=== PATIENT | male | born 1955 | race Hispanic/Latino ===

== ENCOUNTER 2020-05-04 14:33 | Inpatient (IN) | payer BC, MEDICARE ==
[2020-05-04] MEDS ORDERED: Morphine 4 MG/ML VIAL ONE (15:03)
[2020-05-04] MEDS ORDERED: Ondansetron PF 4 MG/2 ML Vial ONE (15:03)
[2020-05-04 15:11] LABS: #Basophils 0.1 thou/uL (0.0-0.2); #Eosinphils 0.2 thou/uL (0.0-0.7); #Lymphocytes 1.7 thou/uL (1.20-3.40); #Neutrophils 9.7 thou/uL (1.40-6.50); %Basophils 0.6 % (0.0-1.0); %Eosinophils 1.4 % (0.0-10.0); %Lymphocytes 13.6 % (21.0-51.0); %Neutrophils 76.3 % (42.0-75.0); Hemoglobin 16.2 g/dL (14.0-18.0); Mean Corpuscular HGB CONC 33.7 g/dL (32.0-36.0); Mean Corpuscular Hemoglobin 30.8 pg (27.0-31.0); Mean Corpuscular Volume 91.4 fL (78.0-98.0); Mean Platelet Volume 7.4 fL (7.4-10.4); Platelet Count 208 thou/uL (130-400); RBC Distribution Width 11.6 % (11.5-14.5); Red Blood Cell (RBC) Count 5.28 mill/uL (4.70-6.10); White Blood Cell (WBC) Count 12.7 thou/uL (4.8-10.8)
--- NOTE | 2020-05-04 15:37 | RAD ---
EXAM: 2 views of the right hip HISTORY: Right hip pain after fall on Tuesday COMPARISON: None FINDINGS: 2 views of the right hip shows a minimally displaced intertrochanteric femur fracture. Mild right hip degenerative changes are seen. Mild soft tissue swelling is present. IMPRESSION: Intertrochanteric right femur fracture
[2020-05-04 15:39] LABS: ALT (SGPT) 16 U/L (8-55); AST (SGOT) 16 U/L (5-34); Albumin 3.8 g/dL (3.4-4.8); Alkaline Phosphatase 60 U/L (40-110); Anion Gap 15 mmol/L (10-20); BUN (Urea Nitrogen) 20 mg/dL (8.4-25.7); Bilirubin, Total 0.7 mg/dL (0.2-1.2); CK (CPK) 48 U/L (30-200); Calc. Creatinine Clearance 0 mL/min (70-130); Carbon Dioxide 26 mmol/L (23-31); Chloride 102 mmol/L (98-107); Estimated GFR-MDRD 68; Globulin 3.2 g/dL (2.4-3.5); Glucose 99 mg/dL (80-115); Potassium 4.5 mmol/L (3.5-5.1); Sodium 138 mmol/L (136-145)
--- NOTE | 2020-05-04 15:40 | RAD ---
EXAM: Single view of the chest HISTORY: Fall with chest pain COMPARISON: None FINDINGS: Single view of the chest shows a normal sized cardiomediastinal silhouette. There is no laurent dence of consolidation, mass, or pleural effusion. Degenerative changes are seen in the spine. IMPRESSION: No evidence of acute cardiopulmonary disease
--- NOTE | 2020-05-04 15:43 | RAD ---
Exam: Single view of the pelvis HISTORY: Pelvic and hip pain after fall COMPARISON: None FINDINGS: A single view the pelvis shows an intertrochanteric fracture of the right femur. Mild degen erative changes are seen in both hips. IMPRESSION: Intertrochanteric right femur fracture
[2020-05-04 16:22] LABS: Bilirubin Negative (Negative); Blood, Urine Negative (Negative); Clarity Clear (Clear); Glucose, Urine (Dipstick) Normal (Negative); Ketone, Urine Negative (Negative); Leukocyte Negative Leu/uL (Negative); Nitrite Negative (Negative); Protein, Urine (Dipstick) 10 mg/dL (Neg-Trace); Specific Gravity, Urine 1.029 (1.002-1.036); Urobilinogen Normal mg/dL (Less than 2); pH, Urine 6.5 (5.0-9.0)
[2020-05-04] MEDS ORDERED: Ondansetron ODT 4 MG TAB PO PRN (18:53)
[2020-05-04] MEDS ORDERED: Ondansetron PF 4 MG/2 ML Vial IVP PRN (18:53)
[2020-05-04] MEDS ORDERED: Dextrose 5% in Water 1,000 ML IV PRN (18:53)
[2020-05-04] MEDS ORDERED: traMADol HCl 50 MG TAB PO PRN (18:53)
[2020-05-04] MEDS ORDERED: Dextrose 50% Abboject 50 ML SYRINGE SLOW IVP PRN (18:53)
[2020-05-04] MEDS ORDERED: Morphine 2 MG/ML VIAL SLOW IVP PRN (18:53)
[2020-05-04] MEDS ORDERED: Cyclobenzaprine 10 MG TAB PO PRN (18:53)
--- NOTE | 2020-05-04 19:23 | HP ---
REQUESTING PHYSICIAN: Dr. Cerrato. ATTENDING SURGEON: Dr. Dahl. CONSULTATIONS: Orthopedics, Dr. Bloom. HISTORY OF PRESENT ILLNESS: The patient is a 64-year-old man, who on Tuesday went to sit on a stool in his kitchen and missed the stool, landed on his right hip. The patient had enough pain that he was unable to ambulate, but was able to get to the bedroom and get in to bed. He spent the days there and finally today his convinced him to come to the emergency department, where he underwent evaluation and examination, was noted to have a right intertrochanteric femur fracture, which time we were asked to evaluate the patient for admission and obtain Orthopedic consultation. ALLERGIES: NONE. CURRENT MEDICATIONS: None. PAST MEDICAL HISTORY: Hypertension. The patient reports he controlled with his weight and diet. PAST SURGICAL HISTORY: Tonsillectomy. SOCIAL HISTORY: The patient denies drug, tobacco, or alcohol use. 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 He lives at home with his . REVIEW OF SYSTEMS: 10-point review of systems is negative as otherwise stated. PHYSICAL EXAMINATION: VITAL SIGNS: Blood pressure 145/74, heart rate 80, respirations 16, oxygen saturation is 96% on room air, and temperature is 98.7. GENERAL: The patient is resting comfortably in bed. He is awake, alert, conversant, appropriate. [place] Coma Scale is 15. HEENT: Unremarkable. LUNGS: Clear to auscultation with good inspiratory and expiratory effort. HEART: Regular rate and rhythm. ABDOMEN: Soft, flat, nontender with active bowel sounds. EXTREMITIES: Neurovascularly intact x4. PELVIS: Stable with tenderness to palpation of the right hip consistent with his fracture. BACK: Atraumatic and nontender. LABORATORY FINDINGS: White blood cell count 12.7, hemoglobin 16.2, hematocrit 48.2, platelets 208. Sodium 138, potassium 4.5, chloride 102, CO2 of 26, BUN 20, creatinine 1.08, glucose 99. LFTs are unremarkable. Troponin is 0.018. CK is 48. Urinalysis is unremarkable. RADIOGRAPHS: AP chest x-ray shows no acute cardiopulmonary process. AP pelvis shows a right intertrochanteric femur fracture. Views of the right hip again demonstrate the right nondisplaced intertrochanteric femur fracture. PLAN: Plan will be to admit the patient to the surgical floor. We will make him n.p.o. after midnight. He will have pain control, pulmonary toilet, gastritis and mechanical VTE prophylaxis. Postoperatively, we will begin physical and occupational therapy, chemical VTE prophylaxis, and placement. The evaluation, examination, laboratory, and radiographic findings were discussed with Dr. Dahl prior to this dictation. Job ID: [id number]
[2020-05-04] MEDS: Famotidine 20 MG TAB PO SCH (21:50)
[2020-05-04] MEDS: Ibuprofen 600 MG TAB PO SCH (21:50)
[2020-05-04 22:48] VITALS: BMI 31.8
[2020-05-04 23:11] LABS: SARS-CoV-2 MS2 Positive; SARS-CoV-2 N Gene Negative; SARS-CoV-2 S Gene Negative; SARS-CoV-2 by NAA Not Detected (NotDetected); SARS-CoV-2 orf1ab Negative
[2020-05-04] MEDS: Acetaminophen 500 MG TAB PO SCH (23:23)
[2020-05-04] MEDS: Sodium Chloride 0.9% 1,000 ML IV SCH (23:24)
[2020-05-05] MEDS: Ibuprofen 600 MG TAB PO SCH ×3 (05:16→21:02)
[2020-05-05] MEDS: Acetaminophen 500 MG TAB PO SCH ×4 (05:16→23:25)
[2020-05-05 05:51] LABS: #Basophils 0.1 thou/uL (0.0-0.2); #Eosinphils 0.5 thou/uL (0.0-0.7); #Lymphocytes 2.3 thou/uL (1.20-3.40); #Monocytes 0.9 thou/uL (0.11-0.59); #Neutrophils 5.5 thou/uL (1.40-6.50); %Basophils 0.6 % (0.0-1.0); %Eosinophils 5.5 % (0.0-10.0); %Lymphocytes 24.9 % (21.0-51.0); Hemoglobin 15.3 g/dL (14.0-18.0); Mean Corpuscular HGB CONC 33.5 g/dL (32.0-36.0); Mean Corpuscular Hemoglobin 30.7 pg (27.0-31.0); Mean Corpuscular Volume 91.6 fL (78.0-98.0); Mean Platelet Volume 7.2 fL (7.4-10.4); Platelet Count 186 thou/uL (130-400); RBC Distribution Width 11.8 % (11.5-14.5); Red Blood Cell (RBC) Count 4.98 mill/uL (4.70-6.10); White Blood Cell (WBC) Count 9.3 thou/uL (4.8-10.8)
[2020-05-05 06:09] LABS: Anion Gap 12 mmol/L (10-20); BUN (Urea Nitrogen) 19 mg/dL (8.4-25.7); Calc. Creatinine Clearance 107 mL/min (70-130); Calcium 8.6 mg/dL (7.8-10.44); Carbon Dioxide 28 mmol/L (23-31); Chloride 104 mmol/L (98-107); Estimated GFR-MDRD 73; Glucose 92 mg/dL (80-115); Magnesium 2.3 mg/dL (1.6-2.6); Phosphorus 3.7 mg/dL (2.3-4.7); Potassium 4.9 mmol/L (3.5-5.1); Sodium 139 mmol/L (136-145)
[2020-05-05] MEDS ORDERED: CEFAZOLIN 2 GM in Premix Bag 1 BAG IVPB SCH (07:30)
--- NOTE | 2020-05-05 08:51 | CON ---
DATE OF CONSULTATION: 05/05/2020 REQUESTING PHYSICIAN: Dr. Rio Dahl. BRIEF HISTORY OF PRESENT ILLNESS: Mr. Vee is a 64-year-old gentleman who is examined in his hospital room at [facility] in [place], [place]. He reports that 6 days prior to admission, he was in his kitchen when he tried to sit on a stool, but missed the stool, landing awkwardly on the right hip. He reports immediate pain. He was able to get to his bedroom and since injury, has essentially been lying in his bed with just brief periods of time out of bed with continued right hip pain. He finally presented to the emergency room, where x-rays were obtained that demonstrated a minimally displaced right intertrochanteric femur fracture. The patient was admitted to the Trauma Service and Orthopedic consultation requested. PAST MEDICAL HISTORY: Remarkable for hypertension. PAST SURGICAL HISTORY: Tonsillectomy. MEDICATIONS: None. ALLERGIES: NONE KNOWN. SOCIAL HISTORY: Denies tobacco, alcohol, or drug use. 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 REVIEW OF SYSTEMS: No recent fevers, chills, or sweats. Denies chest pain, shortness of breath, or cough. Denies numbness or tingling in his lower extremities. FAMILY HISTORY: Noncontributory. PHYSICAL EXAMINATION: VITAL SIGNS: Temperature 97.4, heart rate of 62, respiratory rate of 16, and blood pressure 105/68. HEENT: Atraumatic and normocephalic. HEART: Shows a regular rate and rhythm without murmur. LUNGS: Clear to auscultation bilaterally with good breath sounds. Chest wall is nontender. PELVIS: Stable. EXTREMITIES: Remarkable for right lower extremity with groin pain with logrolling of the thigh. His distal neurovascular exam is intact. He denies numbness or tingling in the foot. He is able to wiggle his toes and ankle without difficulty. LABORATORY DATA: He was found to have a white count of 9.3, hematocrit of 45.6, and 186,000 platelets. X-RAYS: AP pelvis as well as right hip x-rays are remarkable for a minimally displaced right intertrochanteric femur fracture. ASSESSMENT: A 64-year-old gentleman, now one week status post fall at home sustaining a right intertrochanteric femur fracture. PLAN: At this time, the patient has been admitted to the Trauma Service. He is currently n.p.o. We will proceed with surgical stabilization of this intertrochanteric femur fracture with a DHS device. Today, I discussed with the patient risks and benefits of the procedure. Risks include, but are not limited to bleeding, infection, nerve injury, DVT, PE, loss of limb or life. The patient appears to understand and does wish to proceed. Written consent will be obtained prior to surgery. Job ID: [id number]
[2020-05-05] MEDS: Famotidine 20 MG TAB PO SCH ×2 (09:08→20:40)
[2020-05-05] MEDS: Sodium Chloride 0.9% 1,000 ML IV SCH (12:06)
[2020-05-05] MEDS ORDERED: Rocuronium Bromide 10 MG/ML (10ML VIAL) ONE (14:11)
[2020-05-05] MEDS ORDERED: PROPOFOL 200 MG/20 ML VIAL ONE (14:11)
[2020-05-05] MEDS ORDERED: Dexamethasone 20 MG/5 ML VIAL ONE (14:11)
[2020-05-05] MEDS ORDERED: Ketorolac Tromethamine 30 MG/ML VIAL ONE (14:11)
[2020-05-05] MEDS ORDERED: Glycopyrrolate 0.2 MG/ML 5 ML SYRINGE ONE (14:11)
[2020-05-05] MEDS ORDERED: Ondansetron PF 4 MG/2 ML Vial ONE (14:11)
[2020-05-05] MEDS ORDERED: Lidocaine 1% PF 5 ML VIAL ONE (14:11)
[2020-05-05] MEDS ORDERED: Fentanyl 100 MCG/2 ML VIAL ONE ×3 (14:50→17:14)
[2020-05-05] MEDS ORDERED: Promethazine HCl 25 MG/ML VIAL SLOW IVP PRN (16:43)
[2020-05-05] MEDS ORDERED: Ondansetron HCl/PF 4 MG/2 ML Vial IVP PRN (16:43)
[2020-05-05] MEDS ORDERED: HYDROmorphone 2 MG/ML VIAL SLOW IVP PRN (16:43)
[2020-05-05] MEDS ORDERED: Meperidine HCl/PF 25 MG/ML VIAL SLOW IVP PRN (16:43)
--- NOTE | 2020-05-05 18:57 | RAD ---
EXAM: XR Hip Rt 2-3 View DATE: 05/05/2020 3:15 PM INDICATION: ORIF of right femur COMPARISON: Right hip radiograph dated May 04, 2020 FINDING: There has been interval reduction and placement of a hip screw and sideplate. Fracture alig nment is near anatomic. The instrumentation projects in the expected position. Total fluoroscopic time was 64.1 seconds. IMPRESSION:ORIF of right intertrochanteric hip fracture
--- NOTE | 2020-05-05 19:44 | PRG ---
DATE OF SERVICE: 05/05/2020 SUBJECTIVE: The patient is hospital day 2 status post delayed presentation of a right intertrochanteric femur fracture. He has been n.p.o. since midnight. He is currently awaiting surgery at the time of our visit. The patient reports no issues overnight. He is tolerating a diet. PHYSICAL EXAMINATION: VITAL SIGNS: Temperature is 97.7, heart rate 69, respirations 18, oxygen saturation 97% on room air, and blood pressure 158/81. GENERAL: The patient is resting comfortably in bed. He is awake, alert, conversant, appropriate. [place] Coma Scale is 15. HEENT: Unremarkable. LUNGS: Clear to auscultation with good inspiratory and expiratory effort. HEART: Regular rate and rhythm. ABDOMEN: Soft, flat, and nontender with active bowel sounds. EXTREMITIES: Neurovascularly intact x4. LABORATORY FINDINGS: White blood cell count 9.3, hemoglobin 15.3, hematocrit 45.6, platelets 186. Sodium 139, potassium 4.9, chloride 104, CO2 of 28, BUN 19, creatinine 1.02, glucose 92, magnesium 2.3, and phosphorus 3.7. RADIOGRAPHIC DATA: There are no radiographs to review this morning. ASSESSMENT AND PLAN: 1. Status post ground level fall with delayed presentation. 2. Right intertrochanteric femur fracture. Plan will be to await surgical procedure. Postoperatively, we will begin physical and occupational therapy, chemical VTE prophylaxis, and discuss placement at that time. The patient was evaluated this morning with Dr. Pisano during rounds. Job ID: [id number]
[2020-05-05] MEDS: CEFAZOLIN 2 GM in Premix Bag 1 BAG IVPB SCH (20:40)
[2020-05-06] MEDS: CEFAZOLIN 2 GM in Premix Bag 1 BAG IVPB SCH ×2 (05:12→11:50)
[2020-05-06] MEDS: Ibuprofen 600 MG TAB PO SCH ×3 (05:12→21:00)
[2020-05-06] MEDS: Acetaminophen 500 MG TAB PO SCH ×4 (05:13→23:27)
[2020-05-06 05:55] LABS: #Lymphocytes 1.1 thou/uL (1.20-3.40); #Monocytes 0.9 thou/uL (0.11-0.59); #Neutrophils 11.9 thou/uL (1.40-6.50); %Basophils 0.2 % (0.0-1.0); %Eosinophils 0.2 % (0.0-10.0); %Lymphocytes 7.9 % (21.0-51.0); %Monocytes 6.3 % (0.0-10.0); %Neutrophils 85.5 % (42.0-75.0); Hemoglobin 14.9 g/dL (14.0-18.0); Mean Corpuscular Hemoglobin 30.2 pg (27.0-31.0); Mean Corpuscular Volume 91.4 fL (78.0-98.0); Mean Platelet Volume 7.3 fL (7.4-10.4); Platelet Count 225 thou/uL (130-400); RBC Distribution Width 11.5 % (11.5-14.5); Red Blood Cell (RBC) Count 4.95 mill/uL (4.70-6.10); White Blood Cell (WBC) Count 13.9 thou/uL (4.8-10.8)
[2020-05-06] MEDS ORDERED: Aspirin 81 mg Enteric Coated Tablet PO SCH (09:00)
[2020-05-06] MEDS: Famotidine 20 MG TAB PO SCH ×2 (09:42→20:56)
[2020-05-06] MEDS: Aspirin 81 mg Enteric Coated Tablet PO SCH ×2 (09:42→20:55)
[2020-05-06] MEDS: traMADol HCl 50 MG TAB PO PRN ×2 (09:47→16:17)
[2020-05-06] MEDS: traMADol HCl 50 MG TAB PO SCH ×2 (18:10→23:27)
[2020-05-06] MEDS: Senokot S 8.6-50 MG TAB PO SCH (20:55)
--- NOTE | 2020-05-07 00:58 | OP ---
DATE OF PROCEDURE: 05/05/2020 PREOPERATIVE DIAGNOSIS: Right intertrochanteric femur fracture. POSTOPERATIVE DIAGNOSIS: Right intertrochanteric femur fracture. PROCEDURE PERFORMED: DHS right intertrochanteric femur fracture. ANESTHESIA: General. AERONAUTICAL PRODUCTS SALES ENGINEER: Edwin. IMPLANT: Synthes DHS system was used with 135-degree 3-hole sideplate and a 100 mm hip screw. COMPLICATIONS: None. ESTIMATED BLOOD LOSS: 200 mL. DRAINS: None. SPECIMEN: None. OUTCOME: Satisfactory. INDICATIONS FOR PROCEDURE: The patient is a pleasant 64-year-old gentleman, who nearly a week prior to this admission, fell at home sustaining trauma to the right hip. He was able to place himself at bedrest at home; however, as the hip did not improve, he eventually presented to the emergency room for evaluation. X-ray evaluation demonstrated an intertrochanteric femur fracture. The patient now admitted to the Trauma Service, an Orthopedic consultation requested. Today, I discussed with the patient risks and benefits of the procedure. He appears to understand and does wish to proceed. DESCRIPTION OF PROCEDURE: The patient was brought to the operating room and a time-out performed followed by induction of general anesthesia. Next, patient was positioned supine on the fracture table with the injured extremity held in longitudinal traction and the well leg held in extension at the hip to allow for AP and lateral C-arm imaging of the right hip. Next, a sterile prep and drape was performed of the right lateral thigh. Next, an incision was made distal to the greater trochanter following the line of the femur. After skin was sharply incised, dissection was carried down to the underlying fascia randell. This structure was incised in line with the skin incision and reflected anteriorly and posteriorly revealing the fascia of the vastus lateralis. This fascia was also incised in line with the skin incision and then the muscle belly was swept off the posterior fascial leaflet and reflected off the lateral cortex of the femur. At this point, a 135-degree jig was used to pass a guidewire from the lateral cortex of the femur up the femoral neck into the femoral head. Once appropriately positioned, a measurement was taken off this pin and 100 mm hip screw was found to be of appropriate length. Next, the step drill was passed over this guidewire. Further reaming and preparing the femoral neck and femoral head to accept the hip screw. A 135-degree sideplate with 100 mm hip screw was then introduced in the wound. The hip screw was passed over the guidewire, screwing it up the femoral neck into the femoral head to an appropriate position. This was checked with both AP and lateral C-arm images. The sideplate was then affixed to the lateral cortex of the femur using three 4.5 mm cortical screws. With completion of this, final AP and lateral C-arm images were obtained of the right proximal femur. The wound was then irrigated with bulb syringe and closed in layers with 0 Vicryl for the fascia randell, followed by 2-0 Vicryl subcutaneously and regino for the skin. Xeroform gauze tape dressing was applied to the right lateral thigh and then patient was transferred to recovery room in stable condition. There were no complications. It should be noted that my assistant tennis professional was used for retraction of the vastus lateralis to allow for visualization of the lateral cortex of the femur as well as manipulation of the leg for reduction prior to hardware placement. There were no complications. He tolerated the procedure well. Job ID: [id number]
--- NOTE | 2020-05-07 05:03 | PRG ---
DATE OF SERVICE: 05/06/2020 SUBJECTIVE: The patient is now hospital day #3 status post delayed presentation of a right intertrochanteric femur fracture. Yesterday, he underwent open reduction and internal fixation of this right hip fracture. This morning, he is tolerating a diet well. He is sitting up in the chair to get out of the bed. He reports that he is having some difficulty with pain with hip flexion, but otherwise feels his pain is moderately well controlled while at rest. He also complains of constipation this morning. Does not have any associated nausea, vomiting, or abdominal pain. OBJECTIVE: VITAL SIGNS: Temperature 97.9, heart rate 66, respirations 18, O2 saturation 94% on room air, and blood pressure 129/63. GENERAL: The patient is sitting comfortably in the chair. He is awake, alert, conversant, and appropriate. GCS 15. HEENT: Unremarkable. LUNGS: Equal rise and fall of the chest bilaterally. Good respiratory effort. ABDOMEN: Soft, nontender. EXTREMITIES: Neurovascularly intact and able to move all 4 extremities. LABORATORY FINDINGS: WBC 13.9, hemoglobin 14.9, hematocrit 45.2, and platelets 225. No additional labs or imaging to be reviewed today. ASSESSMENT: 1. Status post ground level fall with delayed presentation. 2. Right intertrochanteric femur fracture, status post open reduction, internal fixation with DHS. 3. History of hypertension, currently controlled with diet in the outpatient setting and normotensive here. PLAN: The patient will need to continue with PT and OT. He has been started on aspirin 81 mg b.i.d. for chemical VTE prophylaxis. His pain is well controlled on his current regimen. We will not make any changes to this today. We will talk with Case Management to begin discharge planning. Ultimately, he will need to go to inpatient rehab upon discharge. Job ID: [id number]
[2020-05-07] MEDS: Ibuprofen 600 MG TAB PO SCH ×3 (05:37→21:13)
[2020-05-07] MEDS: traMADol HCl 50 MG TAB PO SCH ×3 (05:38→17:47)
[2020-05-07] MEDS: Acetaminophen 500 MG TAB PO SCH ×3 (05:39→17:45)
[2020-05-07 06:00] LABS: #Basophils 0.1 thou/uL (0.0-0.2); #Eosinphils 0.6 thou/uL (0.0-0.7); #Lymphocytes 3.1 thou/uL (1.20-3.40); #Monocytes 1.2 thou/uL (0.11-0.59); #Neutrophils 7.2 thou/uL (1.40-6.50); %Basophils 1.1 % (0.0-1.0); %Eosinophils 5.2 % (0.0-10.0); %Lymphocytes 25.5 % (21.0-51.0); %Monocytes 9.6 % (0.0-10.0); %Neutrophils 58.6 % (42.0-75.0); Hemoglobin 13.8 g/dL (14.0-18.0); Mean Corpuscular Hemoglobin 30.7 pg (27.0-31.0); Mean Platelet Volume 7.6 fL (7.4-10.4); Platelet Count 209 thou/uL (130-400); RBC Distribution Width 11.8 % (11.5-14.5); Red Blood Cell (RBC) Count 4.49 mill/uL (4.70-6.10); White Blood Cell (WBC) Count 12.3 thou/uL (4.8-10.8)
[2020-05-07 06:22] LABS: Anion Gap 11 mmol/L (10-20); BUN (Urea Nitrogen) 28 mg/dL (8.4-25.7); Calc. Creatinine Clearance 89 mL/min (70-130); Calcium 8.3 mg/dL (7.8-10.44); Carbon Dioxide 25 mmol/L (23-31); Chloride 104 mmol/L (98-107); Estimated GFR-MDRD 59; Glucose 85 mg/dL (80-115); Magnesium 2.1 mg/dL (1.6-2.6); Phosphorus 3.7 mg/dL (2.3-4.7); Potassium 4.2 mmol/L (3.5-5.1); Sodium 136 mmol/L (136-145)
[2020-05-07] MEDS ORDERED: PHOS-NAK 1 PKT PACK PO SCH (07:45)
[2020-05-07] MEDS: Polyethylene Glycol 3350 17 GM Packet PO SCH (08:57)
[2020-05-07] MEDS: Aspirin 81 mg Enteric Coated Tablet PO SCH ×2 (08:58→20:37)
[2020-05-07] MEDS: Senokot S 8.6-50 MG TAB PO SCH ×2 (08:58→20:36)
[2020-05-07] MEDS: Famotidine 20 MG TAB PO SCH ×2 (08:58→20:37)
--- NOTE | 2020-05-07 16:02 | PRG ---
DATE OF SERVICE: 05/07/2020 SUBJECTIVE: The patient is now hospital day #4, status post delayed presentation of a right intertrochanteric femur fracture and now postop day#2 for DHS right intertrochanteric fracture repair. This morning, he is doing well. Reports he has been participating in physical therapy and that he has been able to ambulate out to the hallway and back. He is sitting up in his chair this morning and is comfortable. His pain is well controlled. Yesterday, we began a bowel regimen. He has not yet had a bowel movement, but feels that he will have 1 today. He is otherwise without complaints and is comfortable with the plan to go to rehab upon discharge. OBJECTIVE: VITAL SIGNS: Temperature 98, heart rate 76, respirations 16, O2 saturation 92 on room air, blood pressure 160/76. GENERAL: The patient is sitting comfortably in the chair, awake, alert, conversant and appropriate. GCS 15. HEENT: Unremarkable. LUNGS: He has equal rise and fall of the chest bilaterally with good respiratory effort. No respiratory distress. EXTREMITIES: Neurovascularly intact. Moving all 4 extremities. ABDOMEN: Soft, nontender. LABORATORY FINDINGS: White blood cell 12.3, hemoglobin 13.8, hematocrit 41.8. Sodium 136, potassium 4.2, chloride 104, carbon dioxide 25, BUN 28, creatinine 1.23, phosphorus 3.7, magnesium 2.1. ASSESSMENT: 1. Status post ground level fall with delayed presentation. 2. Right intertrochanteric femur fracture, status post open reduction and internal fixation with DHS. 3. History of hypertension, currently controlled with diet in the outpatient setting. PLAN: The patient will continue to work with PT and OT. He is pending discharge to inpatient rehab when he has been approved for that. He has been started on aspirin 81 mg b.i.d. for chemical DVT prophylaxis and will continue this. His pain is currently well controlled, especially with re-timing of his medications to be taken prior to physical therapy. We will not make any changes to this today. He is getting up to 3500 on his incentive spirometer and is encouraged to continue using this. Job ID: [id number]
[2020-05-08] MEDS: traMADol HCl 50 MG TAB PO SCH ×3 (00:03→12:12)
[2020-05-08] MEDS: Acetaminophen 500 MG TAB PO SCH ×3 (00:03→12:11)
[2020-05-08] MEDS: Ibuprofen 600 MG TAB PO SCH ×2 (05:12→15:11)
[2020-05-08] MEDS: Polyethylene Glycol 3350 17 GM Packet PO SCH (09:37)
[2020-05-08] MEDS: Senokot S 8.6-50 MG TAB PO SCH (09:37)
[2020-05-08] MEDS: Aspirin 81 mg Enteric Coated Tablet PO SCH (09:37)
[2020-05-08] MEDS: Famotidine 20 MG TAB PO SCH (09:37)
[2020-05-08 17:11] VITALS: BP 158/61; TEMP 98.5
--- NOTE | 2020-05-08 19:25 | PRG ---
DATE OF SERVICE: 05/08/2020 SUBJECTIVE: Mr. Vee is now hospital day 5, status post delayed presentation of a right intertrochanteric femur fracture and is now postop day #3 for DHS right intertrochanteric trochanteric fracture repair. This morning he is sitting up in a chair and reports he is doing well. He has been participating with physical therapy and has again been ambulating out to the hallway and back. He reports that his pain is mostly controlled. He has most pain when he is trying to get in and out of the bed and occasional pain when he is trying to lift the leg, although once he starts walking, he is able to do so with minimal pain. He has been on a bowel regimen, but has not had a bowel movement. Discussed lactulose with patient this morning, but he prefers to wait as he feels he will have a bowel movement today. He is otherwise without complaints and is comfortable with this plan to go to rehab upon discharge. OBJECTIVE: VITAL SIGNS: Temperature 98.2, heart rate 71, respirations 18, O2 saturation 93% on room air, blood pressure 134/67. GENERAL: The patient is sitting comfortably in the chair. He is awake, alert, conversant and appropriate. HEENT: Unremarkable. LUNGS: He has equal rise and fall of the chest bilaterally with good respiratory effort. No respiratory distress. EXTREMITIES: Neurovascularly intact. He is moving all four extremities. ABDOMEN: Soft and nontender. LABORATORY DATA: He has no new labs or imaging to be reviewed today. ASSESSMENT: 1. Status post ground level fall with delayed presentation. 2. Right intertrochanteric femur fracture, status post open reduction, internal fixation with CHS. 3. History of hypertension, normotensive and diet controlled in the outpatient setting. PLAN: We will continue PT and OT. He is pending discharge to inpatient rehab. His insurance has approved [facility] and currently we are waiting for a physician approval at that facility as well as a bed. He remains on aspirin 81 mg b.i.d. for chemical DVT prophylaxis. We will continue his current pain regimen. We will continue his current bowel regimen for now, discussed adding lactulose with the patient. He is resistant to that at this time. If he is not successful in having a bowel movement today, we will talk with him again about adding lactulose to his regimen. This patient was discussed with Dr. Pisano. Job ID: [id number]
--- NOTE | 2020-05-10 15:05 | EKG ---
Test Reason : FALL Blood Pressure : / mmHG Vent. Rate : 077 BPM Atrial Rate : 077 BPM P-R Int : 148 ms QRS Dur : 086 ms QT Int : 374 ms P-R-T Axes : 055 006 049 degrees QTc Int : 423 ms Normal sinus rhythm Normal ECG Confirmed by ALVARO Nath, JADE ([id number]), editor house organ FABIO MELVIN ([id number] on 05/10/2020 3:05:21 PM Referred By: ALVARO Confirmed By:JADE JOHN M.D.
== END 2020-05-08 17:22 | DRG 482 ==
LOC: ERS 14:33 → SJJU 17:06
PROVIDERS: ADMIT Surgery; ATTEND Surgery
PROC: 0QS604Z Reposition Right Upper Femur with Internal Fixation Device, Open Approach (ICD-10-PCS; principal; 2020-05-05)
DX: S72.141A Displaced intertrochanteric fracture of right femur, initial encounter for closed fracture (principal); W18.30XA Fall on same level, unspecified, initial encounter; Y93.89 Activity, other specified; K59.00 Constipation, unspecified; I10 Essential (primary) hypertension; Z20.828 Contact with and (suspected) exposure to other viral communicable diseases
CPT/HCPCS: 36415; 71045; 72170; 76000; 80048; 80053; 81003; 82550; 83735; 84100; 84484; 85025; 87635; 93005; 96374; 96375; C1713; J0690; J1100; J1885; J2270; J2405; J2704; J3010; U0003

== ENCOUNTER 2021-04-24 10:46 | Outpatient (CLI) | payer BC, MEDICARE | END 2021-04-24 10:47 | disposition home or self-care (01) | LOC: MRI 10:46 | PROVIDERS: ATTEND Specialist | DX: M51.16 Intervertebral disc disorders with radiculopathy, lumbar region (principal); M51.17 Intervertebral disc disorders with radiculopathy, lumbosacral region; M48.061 Spinal stenosis, lumbar region without neurogenic claudication | CPT/HCPCS: 72148 ==